=== PATIENT | female | born 1985 | race Caucasian/White ===

== ENCOUNTER 2021-12-23 12:14 | Emergency (ER) | payer MEDICAID, OTHER ==
[~2021-12-23] VITALS: Ht 157.5 cm; Wt 107.0 kg
[2021-12-23 12:24] VITALS: BP 155/96
--- NOTE | 2021-12-23 12:35 | NUR ---
PT AMBULATED TO BED 11 WITH STEADY GAIT
--- NOTE | 2021-12-23 12:46 | NUR ---
36 Y/O FEMALE BIB SELF C/O NUMBNESS AND TINGLING ON THE RIGHT SIDE OF THE BODY, MORE ON THE RIGHT LEG. A/OX4, NO DROOPING OR CHEST PAIN NOTED, DECREASED SENSATION ON THE RIGHT LEG, FULL ROM ON ALL EXTREMITIES. STROKE SCALE 1 PMH AND ALLERGIES; DENIES
--- NOTE | 2021-12-23 13:03 | NUR ---
DR GIRON AT BEDSIDE
[2021-12-23] MEDS ORDERED: IBUPROFEN 400 MG TAB PO ONE (13:10)
[2021-12-23] MEDS ORDERED: NAPR-1704 PO (14:38)
--- NOTE | 2021-12-23 14:44 | NUR ---
DR GIRON AT BEDSIDE
[2021-12-23 15:07] VITALS: BP 134/73
--- NOTE | 2021-12-23 15:09 | NUR ---
Patient discharged with v/s stable. Written and verbal after care instructions ABOUT PLANTAR FASCITIS given and explained. Patient alert, oriented and verbalized understanding of instructions. Ambulatory WITH CRUTCHES with steady gait. All questions addressed prior to discharge. ID band removed. Patient advised to follow up with PMD. Rx of NAPROXEN given. Patient educated on indication of medication including possible reaction and side effects. Opportunity to ask questions provided and answered.
== END 2021-12-23 15:09 | disposition home or self-care (01) ==
LOC: MED 12:14
DX: M72.2 Plantar fascial fibromatosis (principal); F41.9 Anxiety disorder, unspecified; J02.9 Acute pharyngitis, unspecified; B35.1 Tinea unguium; F43.9 Reaction to severe stress, unspecified; R59.0 Localized enlarged lymph nodes; Z98.890 Other specified postprocedural states; Z79.1 Long term (current) use of non-steroidal anti-inflammatories (NSAID)
CPT/HCPCS: 73630; 99283; Q0092

== ENCOUNTER 2022-03-22 22:25 | Emergency (ER) | payer MEDICAID, OTHER ==
[~2022-03-22] VITALS: Ht 157.5 cm; Wt 104.3 kg
[~2022-03-22 22:25] MED LIST: NAPR-1704 PO
[2022-03-22 22:33] VITALS: BP 150/79
--- NOTE | 2022-03-22 22:36 | NUR ---
TO LOBBY A/W BED AMBULATORY
[2022-03-22 22:51] LABS: APPEARANCE,URINE CLOUDY (CLEAR); BILIRUBIN,URINE NEGATIVE (NEGATIVE); BLOOD, URINE 3+ (NEGATIVE); COLOR,URINE YELLOW (YELLOW); LEUKOCYTE ESTERASE ,URINE NEGATIVE (NEGATIVE); NITRITE, URINE NEGATIVE (NEGATIVE); UGLUCOSE NEGATIVE (NEGATIVE)
[2022-03-22 23:00] LABS: RBC,URINE TOO NUMEROUS TO COUN /HPF (0-5); WBC,URINE 0-5 /HPF (0-5)
[2022-03-22 23:34] LABS: BASOPHILS # (AUTO) 0.1 K/uL (0.00-0.22); EOSINOPHILS # (AUTO) 0.1 K/uL (0-0.4); EOSINOPHILS % (AUTO) 0.7 % (0.0-4.0); LYMPHOCYTES % (AUTO) 25.3 % (20.5-51.1); MEAN CORPUSCULAR HEMOGLOBIN 18 pg (27-31); MEAN CORPUSCULAR HGB CONC 30 g/dL (33-37); MEAN CORPUSCULAR VOLUME 60.1 fL (80-94); MONOCYTES # (AUTO) 0.4 K/uL (0.8-1.0); MONOCYTES % (AUTO) 5.4 % (1.7-9.3); NEUTROPHILS # (AUTO) 5.3 K/uL (1.8-7.7); NEUTROPHILS % (AUTO) 67.6 % (42.2-75.2); PLATELET COUNT (AUTO) 369 K/uL (140-450); RED BLOOD CELL COUNT(AUTO) 4.48 MIL/uL (4.20-5.40); RED CELL DISTRIBUTION WIDTH 20.1 % (11.6-13.7); WHITE BLOOD COUNT (AUTO) 7.9 K/uL (4.8-10.8)
[2022-03-23 00:01] LABS: PROTHROMBIN TIME 9.6 secs (10.8-13.4)
[2022-03-23 00:06] LABS: ALBUMIN 3.6 g/dL (3.4-5.0); ANION GAP 10.7 (8-16); CARBON DIOXIDE 27.9 mmol/L (21-32); CREATININE 0.8 mg/dL (0.6-1.3); POTASSIUM 4.6 mmol/L (3.5-5.1); TOTAL BILIRUBIN 0.3 mg/dL (0.0-1.0)
--- NOTE | 2022-03-23 01:15 | NUR ---
SEEN AND EXAMINED BY MALIA
[2022-03-23] MEDS ORDERED: MEDR10TA33 PO ×2 (01:20)
[2022-03-23] MEDS ORDERED: FERR-149 PO (01:20)
[2022-03-23 02:03] VITALS: BP 139/84
--- NOTE | 2022-03-23 02:03 | NUR ---
Patient discharged with v/s stable. Written and verbal after care instructions given MENORRHAGIA and explained. Patient alert, oriented and verbalized understanding of instructions. Ambulatory with steady gait. All questions addressed prior to discharge. ID band removed. Patient advised to follow up with PMD. Rx of FERROUS SULFATE, MEDROXYPROGESTERONE given. Patient educated on indication of medication including possible reaction and side effects. Opportunity to ask questions provided and answered.
== END 2022-03-23 02:03 | disposition home or self-care (01) ==
LOC: MED 22:25
DX: D50.9 Iron deficiency anemia, unspecified (principal); N92.0 Excessive and frequent menstruation with regular cycle
CPT/HCPCS: 36415; 80053; 81001; 81025; 85025; 85610; 85730; 86886; 86900; 86901; 96372; 99283; J1050

== ENCOUNTER 2022-05-15 06:54 | Emergency (ER) | payer MEDICAID ==
[~2022-05-15] VITALS: Ht 157.5 cm; Wt 98.7 kg
[~2022-05-15 06:54] MED LIST changes: +FERR-149 PO; +MEDR10TA33 PO
[2022-05-15 07:18] VITALS: BP 172/89
--- NOTE | 2022-05-15 07:22 | NUR ---
Chelsy sanderson in [facility] - 05/15/22 at 0724 by MEDVERA pt to bed 5
--- NOTE | 2022-05-15 07:24 | NUR ---
PT TO BED 12
--- NOTE | 2022-05-15 08:10 | NUR ---
PT C/O VAGINAL BLEEDING X5 MONTHS. STATES CANNOT FIND A PCP OR OB TO F/U. PT C/O CRAMPING TO PELVIC AREA. PENDING ER MD MONROE.
[2022-05-15 09:54] LABS: BASOPHILS # (AUTO) 0.1 K/uL (0.00-0.22); BASOPHILS % (AUTO) 0.6 % (0.0-2.0); EOSINOPHILS # (AUTO) 0.1 K/uL (0-0.4); EOSINOPHILS % (AUTO) 1.6 % (0.0-4.0); HEMATOCRIT 30.1 % (36-48); HEMOGLOBIN 8.8 g/dL (12.0-16.0); LYMPHOCYTES # (AUTO) 2.3 K/uL (2.5-16.5); LYMPHOCYTES % (AUTO) 25.9 % (20.5-51.1); MEAN CORPUSCULAR HEMOGLOBIN 18 pg (27-31); MEAN CORPUSCULAR HGB CONC 29 g/dL (33-37); MEAN CORPUSCULAR VOLUME 59.9 fL (80-94); MONOCYTES # (AUTO) 0.7 K/uL (0.8-1.0); MONOCYTES % (AUTO) 7.7 % (1.7-9.3); NEUTROPHILS # (AUTO) 5.6 K/uL (1.8-7.7); NEUTROPHILS % (AUTO) 64.2 % (42.2-75.2); PLATELET COUNT (AUTO) 385 K/uL (140-450); RED BLOOD CELL COUNT(AUTO) 5.02 MIL/uL (4.20-5.40); RED CELL DISTRIBUTION WIDTH 20.2 % (11.6-13.7); WHITE BLOOD COUNT (AUTO) 8.8 K/uL (4.8-10.8)
[2022-05-15 10:07] LABS: APPEARANCE,URINE SL CLOUDY (CLEAR); BILIRUBIN,URINE NEGATIVE (NEGATIVE); BLOOD, URINE 3+ (NEGATIVE); COLOR,URINE AMBER (YELLOW); LEUKOCYTE ESTERASE ,URINE TRACE (NEGATIVE); NITRITE, URINE NEGATIVE (NEGATIVE); PH,URINE 6.5 (5.0-9.0); UGLUCOSE NEGATIVE (NEGATIVE)
[2022-05-15 10:11] LABS: ANION GAP 12.9 (8-16); CARBON DIOXIDE 25.7 mmol/L (21-32); CREATININE 0.8 mg/dL (0.6-1.3); POTASSIUM 3.6 mmol/L (3.5-5.1); PROTHROMBIN TIME 9.7 secs (10.8-13.4)
[2022-05-15 10:18] LABS: WBC,URINE 0-5 /HPF (0-5)
[2022-05-15 10:20] LABS: RBC,URINE 20-50 /HPF (0-5)
--- NOTE | 2022-05-15 12:00 | NUR ---
PENDING US AND DISPO. NAD. SAFETY MAINTAINED
[2022-05-15] MEDS ORDERED: MEDR10TA33 PO (13:41)
[2022-05-15 14:30] VITALS: BP 122/70
--- NOTE | 2022-05-15 14:30 | NUR ---
Patient discharged with v/s stable. Written and verbal after care instructions given and explained. Patient verbalized understanding. Ambulatory with steady gait. All questions addressed prior to discharge. Advised to follow up with PMD.
== END 2022-05-15 14:30 | disposition home or self-care (01) ==
LOC: MED 06:54
DX: N93.8 Other specified abnormal uterine and vaginal bleeding (principal); Z79.899 Other long term (current) drug therapy
CPT/HCPCS: 36415; 76830; 80048; 81001; 81025; 85025; 85610; 85730; 86886; 86900; 86901; 87086; 99284; Q0092

== ENCOUNTER 2023-11-13 08:26 | Emergency (ER) | payer MEDICAID ==
[~2023-11-13] VITALS: Ht 157.5 cm; Wt 99.8 kg
[2023-11-13 08:29] VITALS: BP 148/91; PULSE 99; RESP 18; TEMP 97.6; O2SAT 100
[2023-11-13 09:17] LABS: BASOPHILS # (AUTO) 0.1 K/uL (0.00-0.22); BASOPHILS % (AUTO) 1.2 % (0.0-2.0); EOSINOPHILS # (AUTO) 0.1 K/uL (0-0.4); EOSINOPHILS % (AUTO) 1.2 % (0.0-4.0); HEMATOCRIT 28.5 % (36-48); HEMOGLOBIN 8.8 g/dL (12.0-16.0); LYMPHOCYTES # (AUTO) 1.5 K/uL (2.5-16.5); LYMPHOCYTES % (AUTO) 23.9 % (20.5-51.1); MEAN CORPUSCULAR HEMOGLOBIN 20 pg (27-31); MEAN CORPUSCULAR HGB CONC 31 g/dL (33-37); MEAN CORPUSCULAR VOLUME 64.3 fL (80-94); MONOCYTES # (AUTO) 0.5 K/uL (0.8-1.0); MONOCYTES % (AUTO) 8.1 % (1.7-9.3); NEUTROPHILS # (AUTO) 4.2 K/uL (1.8-7.7); NEUTROPHILS % (AUTO) 65.6 % (42.2-75.2); PLATELET COUNT (AUTO) 323 K/uL (140-450); RED BLOOD CELL COUNT(AUTO) 4.44 MIL/uL (4.20-5.40); RED CELL DISTRIBUTION WIDTH 19.2 % (11.6-13.7); WHITE BLOOD COUNT (AUTO) 6.4 K/uL (4.8-10.8)
[2023-11-13 09:30] VITALS: TEMP 97.6
[2023-11-13 09:33] LABS: ANION GAP 10.7 (8-16); CALCIUM 7.9 mg/dL (8.5-10.1); CARBON DIOXIDE 25.9 mmol/L (21-32); CREATININE 0.6 mg/dL (0.6-1.3); POTASSIUM 3.6 mmol/L (3.5-5.1)
[2023-11-13] MEDS: KETOROLAC 30 MG/ML VIAL IM ONE (09:33)
[2023-11-13 09:45] LABS: BILIRUBIN,DIRECT 0.1 mg/dL (0.0-0.3); TOTAL BILIRUBIN 0.3 mg/dL (0.0-1.0); TOTAL PROTEIN, SERUM 7.2 g/dL (6.4-8.2)
[2023-11-13] MEDS ORDERED: MEDR10TA PO (12:03)
[2023-11-13 12:15] VITALS: BP 130/83; PULSE 86; O2SAT 100
== END 2023-11-13 13:35 | disposition home or self-care (01) ==
LOC: MED 08:26
DX: N93.9 Abnormal uterine and vaginal bleeding, unspecified (principal); D64.9 Anemia, unspecified; Z79.899 Other long term (current) drug therapy
CPT/HCPCS: 36415; 80048; 80076; 81002; 81025; 83690; 85025; 86886; 86900; 86901; 96372; 99283; J1885